=== PATIENT | female | born 1960 | race Caucasian/White ===

== ENCOUNTER 2016-12-25 06:04 | Day surgery (SDC) | payer OTHER ==
--- NOTE | ~2016-12-25 | OP ---
Record Of Operation [facility] [address] [place]. [address] NAME: DESI GOODMAN : 64 [place]US : [place] [facility] [place] [id number] AGE: 55 ADM/REG DATE : 12/25/16 MR#: [id number] REPORT SERV DATE: 12/26/16 DICTATED BY: ALIRIO MARTINEZ DATE: 12/25/16 REPORT STATUS : Draft TRANSCRIBED BY: MODL DATE: 12/25/16 DATE OF PROCEDURE: 12/25/2016 PREOPERATIVE DIAGNOSES: 1. Abdominal wall laxity, tissue excess, and lipodystrophy. 2. Lip hypoplasia. POSTOPERATIVE DIAGNOSES: 1. Abdominal wall laxity, tissue excess, and lipodystrophy. 2. Lip hypoplasia. PROCEDURE PERFORMED: 1. Abdominoplasty with liposuction. 2. Juvederm Ultra Plus XC injection to lips. SURGEON: Alirio Martinez M.D. ANESTHESIA: General. ESTIMATED BLOOD LOSS: 75 mL. DETAILS OF PROCEDURE: After informed consent was obtained, the patient was taken to the operating room, placed in supine position on the OR table. General anesthesia was induced. The patient was prepped and draped in usual sterile manner. She had been marked preoperatively. Preop bradford were confirmed. The areas of planned incision and liposuction were infiltrated with local anesthetic and tumescent solution. The low transverse incision was then made sharply with #15 scalpel. Dissection was carried out elevating skin and fatty tissue from the muscle to the umbilical level. Umbilicus was incised and freed from surrounding tissue, preserving umbilical stalk and blood flow. At this point, liposuction was performed in the subcostal area and in the lateral abdomen and flank regions, aspirating 800 mL. Continued dissection was then carried out to the xiphoid process and costal margin on either side. Of note, was that she had a fascial defect in the right lower quadrant near the inguinal ring and had a fatty tissue mass in this defect that was dissected free and the external oblique aponeurosis repaired with 0 Ethibond suture. At this point, then the muscles tightened down the midline with interrupted 0 [id number] Ethibond sutures followed by #1 running suture line, followed by additional contouring in the epigastric region with 0 Ethibond. Additional undermining was then performed as needed. Hemostasis was assured. A TAP block was then performed using ropivacaine, dexamethasone, and Precedex mix provided by pharmacy, injecting 40 mL. Then, 15 round Ladarius drains were brought out through separate stab incision, sutured skin with 2-0 silk. She was flexed approximately 30 degrees at the waist and hemostasis was assured. The excess tissue was then judged for excision removing the tissue from approximately 4 cm above umbilical level coursing out laterally to meet the low transverse incision. The right side tissue was 1195.8 g, left side was 1139.6 g. Once again hemostasis assured, closure was then performed in layered fashion with deep layer of 2-0 V-Loc 180 followed by 3-0 and 4-0 Monocryl layered closure. The umbilicus was inset in standard fashion with 4-0 and 5-0 Monocryl. Sterile dressings Record Of Operation [address] [address] NAME: DESI GOODMAN : 64 [place]US : [place] [facility] [place]#: [id number] AGE: 55 ADM/REG DATE : 12/25/16 MR#: [id number] REPORT SERV DATE: 12/26/16 DICTATED BY: ALIRIO MARTINEZ DATE: 12/25/16 REPORT STATUS : Draft TRANSCRIBED BY: MODShayla DATE: 12/25/16 were then applied. Attention was then turned to the lips. She was re-prepped for the injection of the lip, 1 syringe of Juvederm Ultra Plus XC was used for augmentation using the entire syringe into the upper and lower lip in standard fashion. Sterile dressings were applied as needed. She was taken to PACU in stable condition. She tolerated procedure well. Sponge and needle counts were correct. CC/NARINDERL Alirio Martinez M.D. / [id number] CC: Ramonita Walls Jr., M.D.
[~2016-12-25 06:04] MED LIST: MAX25 PO; MOBIC15 MG PO; MULTIPLE VIT PO; SYN125 PO; VERELAN360 MG PO; ZANAFLEX 4 MG TA4 MG; ZOL50 PO
== END 2016-12-25 23:59 | disposition home or self-care (01) ==
LOC: MSC 06:04
PROVIDERS: Plastic Surgery
PROC: 0JB80ZZ Excision of Abdomen Subcutaneous Tissue and Fascia, Open Approach (ICD-10-PCS; 2016-12-25)
PROC: 3E0H3GC Introduction of Other Therapeutic Substance into Lower GI, Percutaneous Approach (ICD-10-PCS; 2016-12-25)
PROC: 0J080ZZ Alteration of Abdomen Subcutaneous Tissue and Fascia, Open Approach (ICD-10-PCS; principal; 2016-12-25 07:45)
DX: E88.1 Lipodystrophy, not elsewhere classified (principal); I10 Essential (primary) hypertension; E03.9 Hypothyroidism, unspecified; F41.9 Anxiety disorder, unspecified; K13.0 Diseases of lips; M19.90 Unspecified osteoarthritis, unspecified site; F32.9 Major depressive disorder, single episode, unspecified; Z88.0 Allergy status to penicillin; Z98.51 Tubal ligation status; Z90.89 Acquired absence of other organs; Z98.890 Other specified postprocedural states
CPT/HCPCS: 80053; 85025; 88305; 93005; A9270-GY; J0690; J0735; J1956; J2250; J2270; J2405; J2550; J2710; J2795; J3010

== ENCOUNTER 2017-01-22 12:02 | Emergency (ER) | payer BC | END 2017-01-22 16:36 | disposition home or self-care (01) | LOC: ER 12:02 | DX: S06.0X1A Concussion with loss of consciousness of 30 minutes or less, initial encounter (principal); S70.11XA Contusion of right thigh, initial encounter; S00.11XA Contusion of right eyelid and periocular area, initial encounter; I10 Essential (primary) hypertension; F41.9 Anxiety disorder, unspecified; Z88.0 Allergy status to penicillin; Z79.899 Other long term (current) drug therapy; W19.XXXA Unspecified fall, initial encounter | CPT/HCPCS: 70486; 73552-RT; 99284 ==